=== PATIENT | female | born 1970 | race African-American/Black ===

== ENCOUNTER 2017-06-28 19:02 | Emergency (ER) | payer OTHER ==
[~2017-06-28] VITALS: Ht 144.8 cm; Wt 92.6 kg
[~2017-06-28 19:02] MED LIST: ADLT ASA LOW81 MG OR; BABY ASPIRIN81 MG PO; BACTRIM DS1 TAB OR; BAYER ASPIRIN E81 MG PO; CEPHALEXIN500 MG PO; FLEXERIL OR; HYDROXYZ HCL25 MG OR; LIPITOR10 MG OR; LISINOPRIL2.5 MG PO; LORTAB 5 OR; METFORMIN500 MG PO; NAPROSYN500 MG OR; ONDANSETRON4 MG PO; PLAVIX75 MG OR; PREVACID30 M2 PO; ROBITUSSIN AC OR; TORADOL OR; ULTRAM50 M1 PO; ULTRAM50 MG OR; VITAMIN D1000 UNI1 PO
[2017-06-28 19:55] VITALS: BP 145/93
== END 2017-06-28 19:55 | disposition home or self-care (01) | DRG 639 ==
LOC: ED 19:02
DX: E11.9 Type 2 diabetes mellitus without complications (principal); R42 Dizziness and giddiness; Z79.84 Long term (current) use of oral hypoglycemic drugs

== ENCOUNTER 2019-05-01 | Emergency (ER) | payer OTHER ==
[2019-05-01] MEDS ORDERED: ZITHROMAX250 MG PO (16:29)
== END 2019-05-01 16:35 | disposition home or self-care (01) | DRG 153 ==
DX: J06.9 Acute upper respiratory infection, unspecified (principal); E11.9 Type 2 diabetes mellitus without complications; Z79.84 Long term (current) use of oral hypoglycemic drugs

== ENCOUNTER 2020-08-03 | Observation (INO) | payer OTHER ==
[~2020-08-03] MED LIST changes: +ZITHROMAX250 MG PO
--- NOTE | 2020-08-03 12:10 | NUR ---
TO ROOM VIA AMBULATORY
[2020-08-03 13:12] LABS: HEMATOCRIT 41.5 % (37.0-47.0); HEMOGLOBIN 13.5 g/dl (12.0-16.0); IMMATURE GRANULOCYTES 0.2 % (0.0-5.0); MEAN CELL VOLUME 91.6 fL CALC (80.0-100.0); MEAN CORPUSCULAR HGB 29.8 pG CALC (26.0-32.0); MEAN CORPUSCULAR HGB CONC 32.5 g/dL CAL (32.0-36.0); NEUT# 1.97 thou/uL (2.00-7.15); RED BLOOD COUNT 4.53 mill/uL (4.20-5.60); RED CELL DISTRI WIDTH 13.9 % (11.5-15.5)
--- NOTE | 2020-08-03 13:14 | NUR ---
RESTING IN BED, AWAKE COMPLIANT, DISCUSSED PLAN
[2020-08-03 13:33] LABS: ALBUMIN 4.2 g/dL (3.2-5.0); ALKALINE PHOSPHATASE 97 u/l (38-126); ANION GAP 10 (6-22 (CALC)); BILIRUBIN, TOTAL 0.6 mg/dL (0.0-1.4); BUN 12 mg/dL (7-17); BUN/CREATININE RATIO 17 (12-20 (CALC)); CARBON DIOXIDE 28 mmol/l (22-30); CHLORIDE 102 mmol/l (95-108); CREATININE 0.7 mg/dL (0.5-1.0); GFR > 60 ML/MIN (>=60 (CALC)); GFR FOR AFR.AMER. > 60 ML/MIN (>=60 (CALC)); POTASSIUM 4.2 mmol/l (3.5-5.1); SGOT/AST 39 u/l (14-36); SODIUM 136 mmol/l (137-146)
[2020-08-03 13:44] LABS: MYOGLOBIN 32 ng/mL (0 - 62)
--- NOTE | 2020-08-03 14:30 | NUR ---
ASSISTED TO THE BATHROOM, STEADY GAIT
--- NOTE | 2020-08-03 15:35 | NUR ---
RESTING IN BED AT THIS TIME
--- NOTE | 2020-08-03 15:46 | NUR ---
SBAR PRINTED TO FLOOR
--- NOTE | 2020-08-03 17:33 | NUR ---
REPORT RECEIVED FROM HUSEYIN KHAN
--- NOTE | 2020-08-03 17:33 | NUR ---
REPORT CALLED TO DIANA IN MED SURG
--- NOTE | 2020-08-03 17:38 | NUR ---
PATEITN BELONGINGS INVENTORY COMPLETED
--- NOTE | 2020-08-03 17:43 | NUR ---
PATIENT TRANSPORTED TO [facility]
[2020-08-03 17:49] VITALS: BP 149/84
--- NOTE | 2020-08-03 17:49 | NUR ---
PT ARRIVED TO MED/SURG ROOM 272 IN STABLE CONDITON VIA WHEELCHAIR ACCOMPANIED BY HUSEYIN KHAN AND DAUGHTER;PT AMBULATED TO BEDSIDE WITH A STEADY GAIT;WT AND VS OBTAINED;ORIENTED TO ROOM AND CALL LIGHT SYSTEM, PT A&O X4;PT REPORTS X3 DAYS OF INTERMITTENT CHEST PAIN;PT DENIES ANY CURRENT PAIN OR DISCOMFORTS,PAIN SCALE AND REPORTING EDUCATED;RESPIRATIONS EVEN AND UNLABORED ON RA,CLEAR LUNG SOUNDS;ABDOMEN SOFT ON PALPATION AND ACTIVE IN ALL 4 QUADRANTS,LAST BM 08/03/20;STRONG PEDAL PULSES, +1 EDEMA NOTED TO LEFT FOOT PT REPORTS THIS IS NORMAL FOR HER DUE TO POOR CIRCULATION;SKIN INTACT;TELE MONITORING IN PLACE;#20G TO LFA FLUSHED AND PATENT,SITE APPEARS HEALTHY;ACCUCHECK 102;ALLERGY BAND APPLIED TO LEFT ARM;PT DENIES ANY ADDITIONAL NEEDS AND IS ENCOURAGED TO CALL FOR ASSISTANCE IF NEEDED;FALL PRECAUTIONS IN PLACE WITH BED IN THE LOWEST POSITION AND CALL LIGHT IN REACH;WILL CONTINUE TO MONITOR
--- NOTE | 2020-08-03 18:00 | NUR ---
LAB AT BEDSIDE
[2020-08-03 18:15] LABS: URINE BILIRUBIN - DIPSTICK NEGATIVE (NEGATIVE); URINE BLOOD DIPSTICK NEGATIVE (NEGATIVE); URINE CLARITY CLEAR; URINE COLOR YELLOW; URINE GLUCOSE - DIPSTICK NEGATIVE (NEGATIVE); URINE KETONE NEGATIVE (NEGATIVE); URINE LEUK ESTERASE NEGATIVE (Negative); URINE NITRITE - DIPSTICK NEGATIVE (Negative); URINE PROTEIN - DIPSTICK NEGATIVE (NEG-TRACE); URINE SPECIFIC GRAVITY 1.015; URINE UROBILINOGEN - DIPSTICK 0.2 E.U./dL (0.2)
[2020-08-03 19:00] VITALS: BP 118/68
--- NOTE | 2020-08-03 20:18 | NUR ---
REPORT FROM DIANA MATTSON. PT NOTED RESTING IN BED. ALERT AND ORIENTED X4. NO APPARENT DISTRESS NOTED. RESPIRATIONS EVEN AND UNLABORED. CARDIAC CARE NURSE IN PLACE. IV SITE APPEARS HEALTHY. PT DENIES ANY PAIN OR DISCOMFORT. DISCUSSED POC. PT VERBALIZED UNDERSTANDING. NO CURRENT WANTS OR NEEDS VOICED. CALL LIGHT WITHIN REACH. WILL CONTINUE TO MONITOR.
--- NOTE | 2020-08-03 23:56 | NUR ---
PT RESTING IN BED WITH EYES CLOSED. NO APPARENT DISTRESS NOTED. RESPIRATIONS EVEN AND UNLABORED. ROAD GANG SUPERVISOR IN PLACE. CALL LIGHT WITHIN REACH. WILL CONTINUE TO MONITOR.
[2020-08-04 00:02] VITALS: BP 122/80
--- NOTE | 2020-08-04 03:04 | NUR ---
PT RESTING IN BED WITH EYES CLOSED. NO APPARENT DISTRESS NOTED. RESPIRATIONS EVEN AND UNLABORED. [employer]YWOOD SCARFER TENDER IN PLACE. CALL LIGHT WITHIN REACH. WILL CONTINUE TO MONITOR.
[2020-08-04 03:45] VITALS: BP 119/70
[2020-08-04 07:04] LABS: HEMATOCRIT 41.8 % (37.0-47.0); HEMOGLOBIN 13.5 g/dl (12.0-16.0); IMMATURE GRANULOCYTES 0.2 % (0.0-5.0); MEAN CELL VOLUME 91.5 fL CALC (80.0-100.0); MEAN CORPUSCULAR HGB 29.5 pG CALC (26.0-32.0); MEAN CORPUSCULAR HGB CONC 32.3 g/dL CAL (32.0-36.0); NEUT# 2.07 thou/uL (2.00-7.15); RED BLOOD COUNT 4.57 mill/uL (4.20-5.60); RED CELL DISTRI WIDTH 13.9 % (11.5-15.5)
[2020-08-04 07:25] VITALS: BP 130/87
[2020-08-04 07:28] LABS: ALBUMIN 3.7 g/dL (3.2-5.0); ALKALINE PHOSPHATASE 90 u/l (38-126); ANION GAP 11 (6-22 (CALC)); BILIRUBIN, TOTAL 0.6 mg/dL (0.0-1.4); BUN 10 mg/dL (7-17); BUN/CREATININE RATIO 15 (12-20 (CALC)); CARBON DIOXIDE 27 mmol/l (22-30); CHLORIDE 103 mmol/l (95-108); CREATININE 0.7 mg/dL (0.5-1.0); GFR > 60 ML/MIN (>=60 (CALC)); GFR FOR AFR.AMER. > 60 ML/MIN (>=60 (CALC)); MAGNESIUM 1.7 mg/dL (1.6-2.3); POTASSIUM 4.5 mmol/l (3.5-5.1); SGOT/AST 26 u/l (14-36); SODIUM 136 mmol/l (137-146); TOTAL CHOLESTEROL 167 mg/dl (0-199); TOTAL PROTEIN 6.9 g/dL (6.3-8.2); TOTAL TRIGLYCERIDES 128 mg/dl (30-149); VLDL CHOLESTROL 26 mg/dl (2-49 (CALC))
--- NOTE | 2020-08-04 08:00 | NUR ---
PT RESTING IN THE BED, AXOX3. DENIES PAIN AT THIS TIME. NO DISTRESS NOTED. SIDE RAILS UP CALL LIGHT IN REACH, BED LOCKED IN LOW POSITION, WILL CONTINUE OT MONIOTR THE PATIENT.
[2020-08-04] MEDS ORDERED: TRULICITY1.5 MG/0.5 (08:20)
[2020-08-04 10:03] LABS: CALCULATED LDLCHOLESTEROL 102 mg/dL (62-129 (CALC)); CHOLESTEROL HDL RATIO 4.3 (<4.4 (CALC)); HDL CHOLESTEROL 39 mg/dL (>=40)
--- NOTE | 2020-08-04 10:07 | NUR ---
PT HAS A DISCHARGE ORDER FOR HER TO GO TO HER OWN HOME TODAY. PT STATES HER FAMILY WILL BE HERE TO PICK HER UP AFTER LUNCH. NO DISTRESS NOTED AT THIS TIME. CALL LIGHT IN REACH, WILL CONTINUE TO MONITOR THE PATIENT.
--- NOTE | 2020-08-04 12:17 | NUR ---
HL AND TELE REMOVED. TIP INTACT.
--- NOTE | 2020-08-04 12:30 | NUR ---
PT LEFT TO GO TO HER OWN HOME.
--- NOTE | 2020-08-04 12:32 | NUR ---
DISCHARGE ORDERS GIVEN UNDERSTOOD AND SIGNED BY THE PT. EDUCATION ON DIET AND MEAL PLANNING GIVEN TO THE PATIENT. INSTRUCTED ON A1C. PT WAITING FOR HER RIDE HOME , WILL LET US KNOW WHEN RIDE IS OUT SIDE.
== END 2020-08-04 12:48 | disposition home or self-care (01) | DRG 313 ==
PROVIDERS: Emergency Medicine; Nurse Practitioner; ADMIT Internal Medicine
DX: R07.9 Chest pain, unspecified (principal); R00.2 Palpitations; I10 Essential (primary) hypertension; E11.9 Type 2 diabetes mellitus without complications; I89.0 Lymphedema, not elsewhere classified; E66.9 Obesity, unspecified; Z63.4 Disappearance and death of family member; Z86.16 Personal history of COVID-19; Z86.718 Personal history of other venous thrombosis and embolism; Z20.822 Contact with and (suspected) exposure to COVID-19
CPT/HCPCS: G0378; J1650

== ENCOUNTER 2022-12-01 18:03 | Observation (INO) | payer OTHER ==
[2022-12-01] VITALS (11 sets, daily range): BP systolic 117–147; BP diastolic 68–94
[~2022-12-01] VITALS: Ht 144.8 cm; Wt 91.4 kg
[~2022-12-01 18:03] MED LIST changes: +TRULICITY1.5 MG/0.5
[2022-12-01 18:47] LABS: BASO% 0.4 % (0-3); EOS% 1.2 % (0-8); HEMATOCRIT 44.2 % (37.0-47.0); HEMOGLOBIN 14.1 g/dl (12.0-16.0); LYMPH% 41.7 % (15-41); MEAN CELL VOLUME 90.9 fL CALC (80.0-100.0); MEAN CORPUSCULAR HGB CONC 31.9 g/dL CAL (32.0-36.0); MONO% 8.5 % (2-13); NEUT# 3.69 thou/uL (2.00-7.15); NEUT% 47.2 % (42-76); RED BLOOD COUNT 4.86 mill/uL (4.20-5.60); RED CELL DISTRI WIDTH 13.4 % (11.5-15.5)
[2022-12-01 18:55] LABS: ALBUMIN 4.1 g/dL (3.2-5.0); ALKALINE PHOSPHATASE 99 u/l (38-126); ANION GAP 12 (6-22 (CALC)); BILIRUBIN, TOTAL 0.5 mg/dL (0.02-1.3); BUN 15 mg/dL (7-17); BUN/CREATININE RATIO 16 (12-20 (CALC)); CARBON DIOXIDE 27 mmol/l (22-30); CHLORIDE 103 mmol/l (95-108); GFR FOR AFR.AMER. > 60 ML/MIN (>=60 (CALC)); GFR OTHER RACES 58 ML/MIN (>=60 (CALC)); POTASSIUM 3.9 mmol/l (3.5-5.1); SGOT/AST 33 u/l (14-36); SODIUM 138 mmol/l (137-146); TOTAL PROTEIN 8.1 g/dL (6.3-8.2)
[2022-12-01 20:11] LABS: URINE COLOR YELLOW
[2022-12-01 20:12] LABS: URINE BILIRUBIN - DIPSTICK NEGATIVE (NEGATIVE); URINE BLOOD DIPSTICK NEGATIVE (NEGATIVE); URINE GLUCOSE - DIPSTICK 250 mg/dL (NEGATIVE); URINE KETONE 40 mg/dL (NEGATIVE); URINE LEUK ESTERASE NEGATIVE (NEGATIVE); URINE NITRITE - DIPSTICK NEGATIVE (Negative); URINE PROTEIN - DIPSTICK 30 mg/dL (NEG-TRACE); URINE UROBILINOGEN - DIPSTICK 0.2 E.U./dL (0.2)
[2022-12-01 20:18] LABS: URINE WBC 0-2 WBC/hpf (0-5)
[2022-12-01 20:19] LABS: URINE BACTERIA FEW hpf; URINE SQUAMOUS EPITHELIAL CELL MANY EPI/hpf (0-FEW)
[2022-12-02 03:47] VITALS: BP 107/69
[2022-12-02 04:00] VITALS: BP 107/69
[2022-12-02 07:03] VITALS: BP 116/78
[2022-12-02 10:25] VITALS: BP 136/81
[2022-12-02] MEDS ORDERED: MECLIZINE25 MG PO (15:30)
[2022-12-02 15:33] VITALS: BP 94/53
== END 2022-12-02 16:44 | disposition home or self-care (01) | DRG 149 ==
LOC: ED 18:03 → ED-I 20:34 → ED 20:44 → MS2 20:45
PROVIDERS: Family Medicine; ADMIT Internal Medicine; ATTEND Internal Medicine
DX: R42 Dizziness and giddiness (principal); H55.09 Other forms of nystagmus; I10 Essential (primary) hypertension; E11.9 Type 2 diabetes mellitus without complications; I89.0 Lymphedema, not elsewhere classified; Z86.718 Personal history of other venous thrombosis and embolism; Z79.84 Long term (current) use of oral hypoglycemic drugs; Z79.85 Long-term (current) use of injectable non-insulin antidiabetic drugs
CPT/HCPCS: G0378